=== PATIENT | male | born 1985 | race Caucasian/White ===

== ENCOUNTER 2017-01-05 01:56 | Emergency (ER) | payer OTHER ==
[~2017-01-05] VITALS: Ht 182.9 cm; Wt 102.1 kg
[2017-01-05 03:00] LABS: ABSOLUTE BASOPHIL COUNT 0.1 /CUMM (0.0-0.2); ABSOLUTE EOSINOPHIL COUNT 0.1 /CUMM (0.0-0.7); ABSOLUTE GRANULOCYTE CT 5.3 /CUMM (1.4-6.5); ABSOLUTE LYMPH COUNT 1.7 /CUMM (1.2-3.4); ABSOLUTE MONOCYTE COUNT 0.5 /CUMM (0.10-0.60); BASOPHIL % 0.9 % (0.0-2.0); EOSINOPHIL % 1.5 % (0-5); HEMATOCRIT 42.7 % (42-52); MEAN CORPUSCULAR HGB 29.9 PG (27.0-31.0); MEAN CORPUSCULAR HGB CONC 33.9 G/DL (33.0-37.0); MEAN CORPUSCULAR VOLUME 88.2 FL (80.0-94.0); MEAN PLATELET VOLUME 8.9 FL (7.4-10.4); PLATELET COUNT 204 /CUMM (130-400); RBC DISTRIBUTION WIDTH 12.3 % (11.5-14.5); RED BLOOD CELL CT 4.84 /CUMM (4.70-6.10); WHITE BLOOD CELL COUNT 7.6 /CUMM (4.8-10.8)
--- NOTE | 2017-01-05 03:21 | ED GI/GU/ABDOMINAL COMPLAINT ---
History of Present Illness General Chief Complaint: Nausea, Vomiting, Diarrhea Stated Complaint: "+N+V-D, VOMITING BLOOD SINCE MIDNIGHT,ABD PAIN" Source: patient, old records Exam Limitations: no limitations Vital Signs & Intake/Output Vital Signs & Intake/Output Vital Signs Date Time Temp Pulse Resp B/P B/P Pulse O2 O2 Flow FiO2 Mean Ox Delivery Rate 01/05 0208 97.5 110 16 137/97 97 Room Air Room Air Allergies Coded Allergies: No Known Allergies (01/05/17) Triage Note: 31YO MALE TO TRIAGE W/CO VOMITING SINCE 003. DENIES ANY ABD PAIN OR CRAMPS OR DIARRHEA. Triage Nurses Notes Reviewed? yes Onset: Just prior to arrival Duration: hour(s):, constant, continues in ED Timing: recent history Quality/Severity: moderate, vomiting Location: epigastric Radiation: no radiation Activities at Onset: rest Prior Abdominal Problems: none Past Sexual History: Unobtainable at this time Modifying Factors: Worsens With: eating. Associated Symptoms: loss of appetite, nausea/vomiting HPI: 3 days prior to admission patient ran out of his medications. Shortly prior to admission patient began having nausea vomiting crampy abdominal discomfort improved with vomiting. He had episodes of retching with frequent vomiting with some blood. He denies fever chills diarrhea chest pain cough shortness breath headache dysuria rash bleeding dizziness. Past History Travel History Traveled to [place] past 21 day No Medical History Any Pertinent Medical History? see below for history Gastrointestinal: GERD Psychiatric: depression Surgical History Surgical History: non-contributory Psychosocial History What is your primary language [place] Tobacco Use: Never used ETOH Use: denies use Family History Hx Contributory? No Review of Systems Review of Systems Constitutional: Reports: see HPI, malaise. EENTM: Reports: no symptoms. Respiratory: Reports: no symptoms. Cardiovascular: Reports: no symptoms. GI: Reports: see HPI, abdominal pain, nausea, vomiting. Genitourinary: Reports: no symptoms. Musculoskeletal: Reports: no symptoms. Skin: Reports: no symptoms. Neurological/Psychological: Reports: no symptoms. Hematologic/Endocrine: Reports: no symptoms. Immunologic/Allergic: Reports: no symptoms. All Other Systems: Reviewed and Negative Physical Exam Physical Exam General Appearance: well developed/nourished, alert, awake, anxious, mild distress, obese Head: atraumatic, normal appearance Eyes: Bilateral: normal appearance, PERRL, EOMI, normal inspection. Ears, Nose, Throat, Mouth: hearing grossly normal, moist mucous membrane Neck: normal inspection, supple, full range of motion, normal alignment Respiratory: normal breath sounds, chest non-tender, no respiratory distress, quiet respiration, lungs clear Cardiovascular: regular rate/rhythm, normal peripheral pulses, norml femoral pulses equa Peripheral Pulses: 4+ carotid (R), 4+ carotid (L) Gastrointestinal: normal bowel sounds, soft, non-tender, no organomegaly Male Genitals: normal genitalia Back: normal inspection, normal range of motion Extremities: normal range of motion, no ligament instability Neurologic/Psych: no motor/sensory deficits, awake, alert, oriented x 3, normal gait, normal mood/affect, assessment specialist II-XII nml as tested Skin: intact, normal color, warm/dry Core Measures ACS in differential dx? No Severe Sepsis Present: No Septic Shock Present: No Progress Differential Diagnosis: esophageal varices, gastritis Plan of Care: Orders Procedure Date/time Status LIPASE 01/06 240 Complete COMPREHENSIVE METABOLIC PANEL 01/06 240 Complete CBC WITHOUT DIFFERENTIAL 01/06 240 Complete Laboratory Tests 01/05/17 0250: Anion Gap 14, Estimated GFR > 60, BUN/Creatinine Ratio 16.3, Glucose 103 H, Calcium 9.7, Total Bilirubin 0.7, AST 38, ALT 49, Alkaline Phosphatase 103, Total Protein 7.8, Albumin 4.7, Globulin 3.1, Albumin/Globulin Ratio 1.5, Lipase 55, CBC w Diff NO MAN DIFF REQ, RBC 4.84, MCV 88.2, MCH 29.9, RDW 12.3, MPV 8.9, Gran % 69.0, Lymphocytes % 21.6, Monocytes % 7.0, Eosinophils % 1.5, Basophils % 0.9, Absolute Granulocytes 5.3, Absolute Lymphocytes 1.7, Absolute Monocytes 0.5 , Absolute Eosinophils 0.1, Absolute Basophils 0.1, PUBS MCHC 33.9 Initial ED EKG: none Departure Departure Time of Disposition: [id number] Disposition: HOME OR SELF CARE Condition: Stable Clinical Impression Primary Impression: Nausea and vomiting Qualifiers: Vomiting type: unspecified Vomiting Intractability: non-intractable Qualified Code: R11.2 - Nausea with vomiting, unspecified Secondary Impressions: Medication withdrawal Qualifiers: Substance type: sedative, hypnotic or anxiolytic Qualified 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
[2017-01-05] MEDS ORDERED: SERTRALINE HCL100 MG PO (04:28)
[2017-01-05] MEDS ORDERED: ZOFRAN ODT4 M1 SL (04:28)
[2017-01-05] MEDS ORDERED: XANAX2 M1 PO (04:28)
[2017-01-05] MEDS ORDERED: NEURONTIN100 M1 PO (04:28)
[2017-01-05] MEDS ORDERED: PANTOPRAZOLE SO40 M1 PO (04:28)
[2017-01-05] MEDS ORDERED: SERTRALINE HCL50 MG PO (04:28)
[2017-01-05 04:43] VITALS: BP 132/96
== END 2017-01-05 04:43 ==
LOC: ERH 01:56
PROVIDERS: Emergency Medicine
DX: R11.2 Nausea with vomiting, unspecified (principal); F19.239 Other psychoactive substance dependence with withdrawal, unspecified
CPT/HCPCS: 96374; 96375; J2405